=== PATIENT | female | born 1975 | race Hispanic/Latino ===

== ENCOUNTER 2021-11-29 12:50 | Outpatient (CLI) | payer BC ==
[2021-11-29 14:14] LABS: Blood Urea Nitrogen 7 mg/dL (7-17)
--- NOTE | 2021-11-29 16:12 | Cat Scan Report ---
CT ABDOMEN AND PELVIS WITHOUT AND WITH CONTRAST INDICATION / CLINICAL INFORMATION: Hematuria. TECHNIQUE: Axial CT images were obtained through the abdomen and pelvis before and after Omnipaque 30 0, 100 cc IV contrast. All CT scans at this location are performed using CT dose reduction for ALARA by means of automated exposure control. COMPARISON: None available. FINDINGS: LOWER CHEST: No significant abnormality. LIVER: No significant abnormality. GALLBLADDER/BILE DUCTS: Calcified gallstone measuring 1.2 cm. PANCREAS: No significant abnormality. SPLEEN: No significant abnormality. ADRENALS: No significant abnormality. RIGHT KIDNEY / URETER: 3 mm nonobstructing stone posteriorly. LEFT KIDNEY / URETER: No significant abnormality. STOMACH / SMALL BOWEL: No significant abnormality. COLON: No significant abnormality. APPENDIX: No significant abnormality. PERITONEUM: No free fluid. No free air. No fluid collection. LYMPH NODES: No significant adenopathy. VASCULAR STRUCTURES: No significant abnormality. URINARY BLADDER: No significant abnormality. REPRODUCTIVE ORGANS: No significant abnormality. ADDITIONAL FINDINGS: Small fat-containing umbilical hernia. SKELETAL SYSTEM: No significant abnormality. IMPRESSION: 1. Small nonobstructing right renal stone. 2. Calcified gallstone. Signer Name: Andreas Badillo MD Signed: 11/29/2021 4:07 PM Workstation Name: [id number]
== END 2021-11-29 12:51 | disposition home or self-care (01) ==
LOC: CT 12:50
DX: K80.20 Calculus of gallbladder without cholecystitis without obstruction (principal); R31.29 Other microscopic hematuria; N20.0 Calculus of kidney; K42.9 Umbilical hernia without obstruction or gangrene
CPT/HCPCS: 36415; 74178; 82565; 84520; Q9967